=== PATIENT | male | born 1990 | race American Indian/Alaskan Native ===

== ENCOUNTER 2019-12-21 03:28 | Emergency (ER) | payer SELFPAY ==
[2019-12-21] MEDS ORDERED: Acetaminophen 325 MG Tab PO ONE (03:51)
--- NOTE | 2019-12-21 03:53 | EDM.PDOC ---
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 [No Known Home Meds] 12/21/19 [History] ED ROS GENERAL - Review of Systems Review Of Systems: Comprehensive ROS is negative, except as noted in HPI. ED EXAM, SKIN/RASH Exam: See Below Exam Limited By: No Limitations General Appearance: Alert, WD/WN, Mild Distress, Other (discomfort) Ears: Hearing Grossly Normal Throat/Mouth: Normal Voice, No Airway Compromise Head: Atraumatic Neck: Non-Tender, Full Range of Motion Respiratory/Chest: No Respiratory Distress Cardiovascular: Regular Rate, Rhythm GI/Abdominal: Soft, Non-Tender Extremities: Other (multiple lac to both hands, NV wnl) Neurological: Alert, Oriented, Normal Cognition, Normal Gait, No Motor/Sensory Deficits Psychiatric: Normal Affect, Normal Mood Skin: Warm, Dry, Normal Color Location, Skin: Upper Extremity, Right, Upper Extremity, Left Lymphatic: No Adenopathy ED SKIN PROCEDURES - Laceration/Wound Repair Bilateral Hand Appearance: Superficial, Linear, Clean Distal NVT: Neuro & Vascular Intact, No Tendon Injury Skin Prep: Chlorhexidine (Hibiciens) Exploration/Debridement/Repair: Wound Explored, In a Bloodless Field Closed with: Dermabond Lac/Wound length In cm: 3 (multiple lac to left palm right edge & fingers) Sterile Dressing Applied: None Tetanus Status Addressed: Yes Complications: No Course - Vital Signs Last Recorded V/S: Last Vital Signs Temp 36.3 C 12/21/19 03:37 Pulse 71 12/21/19 03:37 Resp 20 12/21/19 03:37 BP 131/84 12/21/19 03:37 Pulse Ox 98 12/21/19 03:37 Departure - Departure Time of Disposition: 03:51 Disposition: Home, Self-Care 01 Condition: Good Clinical Impression: Laceration of hand Qualifiers: Encounter type: initial encounter Foreign body presence: without foreign body Laterality: unspecified laterality Qualified Code(s): S61.419A - Laceration without foreign body of unspecified hand, initial encounter - Discharge Information Instructions: Sutures, [place], or Adhesive Wound Closure, [id number] Additional Instructions: 1) keep wounds clean and dry 2) recheck if looks infected Sepsis Event Note - Evaluation Sepsis Screening Result: No Definite Risk - Focused Exam Vital Signs: Vital Signs Temp Pulse Resp BP Pulse Ox 12/21/19 03:37 36.3 C 71 20 131/84 98 Date Exam was Performed: 12/21/19 Time Exam was Performed: 03:48
== END 2019-12-21 04:05 | disposition home or self-care (01) ==
LOC: DL.ED 03:28
DX: S61.411A Laceration without foreign body of right hand, initial encounter (principal); W25.XXXA Contact with sharp glass, initial encounter; Y92.89 Other specified places as the place of occurrence of the external cause
CPT/HCPCS: 12002; 99282; A9270